=== PATIENT | female | born 1980 | race Caucasian/White ===

== ENCOUNTER 2017-02-16 12:57 | Observation (INO) | payer OTHER ==
[2017-02-16] MEDS ORDERED: ZOLOFT25 M1 PO (13:07)
[2017-02-16] MEDS ORDERED: PRENATAL TABLE1 EAC3 PO (13:07)
[2017-02-16] MEDS ORDERED: PEPCID20 M1 PO (13:07)
== END 2017-02-16 19:38 ==
LOC: EDMED 12:57 → EMR2 14:00 → LDR 14:22
PROVIDERS: ADMIT Hospitalist
DX: O9A.212 Injury, poisoning and certain other consequences of external causes complicating pregnancy, second trimester (principal); S00.81XA Abrasion of other part of head, initial encounter; V09.9XXA Pedestrian injured in unspecified transport accident, initial encounter; Y92.481 Parking lot as the place of occurrence of the external cause; Z3A.26 26 weeks gestation of pregnancy; Z88.0 Allergy status to penicillin